=== PATIENT | female | born 1950 | race Two or more races ===

== ENCOUNTER 2017-05-25 05:00 | Emergency (ER) | payer OTHER ==
[~2017-05-25] VITALS: Ht 160 cm; Wt 102.5 kg
[~2017-05-25 05:00] MED LIST: ENAL20TA70; FENO5TAB; GLYB5TAB66; HYDR25TA4; OMEP20TA69; SITA100T7
[2017-05-25 07:03] LABS: CONDITION Y; DEFINITIVE SEE PRINTOUT; Hematocrit 31.4 % (36.0-46.0); Hemoglobin 10.3 g/dL (12.2-16.2); Mean Corpuscular Hemoglobin 26.8 pg (28.0-32.0); Mean Corpuscular Hgb Conc. 32.7 g/dL (32.0-36.0); Mean Corpuscular Volume 81.9 fL (80.0-100.0); Mean Platelet Volume 8.9 fL (7.4-10.4); Platelet Count (auto) 266 10^3/uL (140-450); Red Cell Distribution Width 17.9 % (11.6-16.0)
[2017-05-25 07:39] LABS: Albumin 2.4 g/dL (3.4-5.0); BUN/Creatinine Ratio 25.2; Bilirubin, Total 0.4 mg/dL (0.2-1.0); Calcium 8.9 mg/dL (8.5-10.1); Potassium 4.4 mmol/L (3.5-5.1); Total Protein 7.5 g/dL (6.4-8.2)
[2017-05-25] MEDS ORDERED: cefTRIAXone 1GM/50ML D5W 50 ML IV ONE (07:45)
[2017-05-25 07:52] LABS: Metamyelocytes % 0; Myelocytes % 0; Promyelocytes % 0; Reactive Lymphocytes 0
[2017-05-25 07:55] VITALS: BP 173/81
[2017-05-25 08:42] LABS: Platelet Estimate Adequate
[2017-05-25 08:43] LABS: Hypochromia Slight
== END 2017-05-25 11:09 | disposition home or self-care (01) ==
LOC: ER 05:04
DX: J03.90 Acute tonsillitis, unspecified (principal); E43 Unspecified severe protein-calorie malnutrition; Z68.41 Body mass index [BMI] 40.0-44.9, adult; E11.22 Type 2 diabetes mellitus with diabetic chronic kidney disease; I12.9 Hypertensive chronic kidney disease with stage 1 through stage 4 chronic kidney disease, or unspecified chronic kidney disease; N18.9 Chronic kidney disease, unspecified; E78.5 Hyperlipidemia, unspecified; Z90.710 Acquired absence of both cervix and uterus
CPT/HCPCS: 36415; 71010; 80053; 85007; 85027; 93005; 94761; 96365; 99285; J0696

== ENCOUNTER 2018-04-22 15:11 | Emergency (ER) | payer OTHER ==
[~2018-04-22] VITALS: Ht 162.6 cm; Wt 97.5 kg
[2018-04-22 15:43] VITALS: BP 171/60
[2018-04-22] MEDS ORDERED: HYDROcodone-ACET 5/325MG TAB PO ONE (16:30)
== END 2018-04-22 16:36 | disposition home or self-care (01) ==
LOC: ER 15:22
DX: M17.11 Unilateral primary osteoarthritis, right knee (principal); E11.22 Type 2 diabetes mellitus with diabetic chronic kidney disease; N18.9 Chronic kidney disease, unspecified; E78.5 Hyperlipidemia, unspecified; I12.9 Hypertensive chronic kidney disease with stage 1 through stage 4 chronic kidney disease, or unspecified chronic kidney disease; Z79.899 Other long term (current) drug therapy; Z90.710 Acquired absence of both cervix and uterus
CPT/HCPCS: 73562